=== PATIENT | female | born 1985 | race Caucasian/White ===

== ENCOUNTER 2017-07-31 11:34 | Emergency (ER) | payer SELFPAY ==
[2017-07-31 11:39] VITALS: BP 151/78; BMI 38.7
[2017-07-31] MEDS ORDERED: TORADOL 60 MG VIAL IM ONE (12:04)
[2017-07-31] MEDS ORDERED: PHENERGAN INJ 25 MG IM ONE (12:04)
[2017-07-31] MEDS ORDERED: PHENERGAN INJ 25 MG ONE (12:08)
[2017-07-31] MEDS ORDERED: TORADOL 60 MG VIAL ONE (12:08)
--- NOTE | 2017-07-31 12:16 | DR.GENAD ---
HPI - PCP Primary Care Physician: Keily - Complaint/Symptoms Chief Complaint:: "Around 9 oclock this morning I started having a bad migraine. I get them around every 6 months. I am on medication prescribed from my pcp, but I still have one occasionally. I have vomitted 6 times already." - Nurses notes reviewed Nurses Notes Review: Yes - Source History Provided: Patient - Mode of Arrival Mode of Arrival: Ambulatory - Timing Onset of Chief Complaint: 07/31/17 PMH - PMH Past Medical History: Yes Past Medical History: Migraines Past Surgical History: Yes Surgical History: Cholecystectomy - Family History History of Family Medical Conditions: Yes Family Medical History: [place], Coronary Artery Disease, Hypertension - Social History Does patient currently use any type of tobacco product: No Have you used tobacco products in the last 12 months: No Type of Tobacco Use: None Does any household member use tobacco: No Alcohol Use: None Do you use any recreational Drugs:: No Lives With: Alone Lives Where: Home - infectious screening In the last 2 months have you had wt loss of >10#?: NO Have you had fever, night sweats or hemotysis?: No Have you traveled outside the country in the last 6 months?: No Isolation: Standard ROS - Review of Systems Constitutional: No Symptoms Reported Eyes: No Symptoms Reported ENTM: No Symptoms Reported Respiratoy: No Symptoms Reported Cardiovascular: No Symptoms Reported Gastrointestinal/Abdominal: No Symptoms Reported Genitourinary: No Symptoms Reported Neurological: Headache Musculoskeletal: No Symptoms Reported Integumentary: No Symptoms Reported Hematologic/Lymphatic: No Symptoms Reported Endocrine: No Symptoms Reported All Other Systems: Reviewed and Negative PE - Vital Signs Vitals: Temperature 97.8 F Pulse Rate 86 Respiratory Rate 14 Blood Pressure 151/78 O2 Sat by Pulse Oximetry 98 - General Limitations: No Limitations General Appearance: Alert - Head Head Exam: Normal Inspection - Eyes Eye exam: Normal Appearance - ENT ENT Exam: Normal External Ear Exam External Ear Exam: Normal External Inspection Mouth Exam: Normal Inspection Throat Exam: Normal Inspection - Neck Neck Exam: Trachea Midline - Chest Chest Inspection: Symmetric Chest Wall Rise - Discharge Plan Condition: Stable Prescriptions: Ondansetron [Zofran ODT 8 mg] 8 mg PO Q8H PRN #12 tab PRN Reason: Nausea/Vomiting - Follow ups/Referrals Follow ups/Referrals: LYNDON DUARTE [Primary Care Provider] - 2 days - Instructions Instructions: Migraine Headache, [id number] Additional Instructions: RETURN TO ED IF WORSE.
== END 2017-07-31 13:30 | disposition home or self-care (01) ==
LOC: ER 11:44
DX: G43.909 Migraine, unspecified, not intractable, without status migrainosus (principal)
CPT/HCPCS: 96372; 99282; J1885; J2550